=== PATIENT | female | born 1970 | race African-American/Black ===

== ENCOUNTER 2017-10-25 17:51 | Emergency (ER) | payer BC ==
[~2017-10-25] VITALS: Ht 175.3 cm; Wt 117.9 kg
[~2017-10-25 17:51] MED LIST: BENICAR HCT 401 EAC1 PO; LEVAQUIN 500 M500 M2 PO; LORTAB 5 MG/5001 TA1 PO; NORVASC5 MG PO; PRILOSEC40 MG PO
[2017-10-25 19:43] LABS: CALCIUM 9.5 mg/dL (8.5-10.1); CREATININE 1.1 mg/dL (0.6-1.0)
[2017-10-25 19:45] LABS: HEMATOCRIT 36.4 % (37.0-47.0); HEMOGLOBIN 12.6 gm/dL (12.0-15.0); MCH 26.1 pg (26.0-34.0); MCHC 34.5 g/dL (28.0-37.0); MCV 75.6 fL (80.0-100.0); PLATELET COUNT 183 thou/uL (150-400); RBC 4.82 mil/uL (4.20-5.00); RDW 14.1 % (10.5-14.5)
[2017-10-25 19:48] LABS: ALBUMIN 3.9 g/dL (3.4-5.0); TOTAL BILIRUBIN 0.5 mg/dL (<0.1-1.0); TOTAL PROTEIN 8.4 g/dL (6.4-8.2)
[2017-10-25 20:13] LABS: ABSOLUTE NEUTROPHILS 4.9 thou/uL (1.4-8.2)
[2017-10-25] MEDS ORDERED: PENICILLIN V P500 MG PO (20:19)
== END 2017-10-25 20:40 | disposition home or self-care (01) ==
LOC: ER 17:51
PROVIDERS: Physician Assistant
DX: J02.0 Streptococcal pharyngitis (principal); I10 Essential (primary) hypertension; K21.9 Gastro-esophageal reflux disease without esophagitis; Z90.710 Acquired absence of both cervix and uterus; Z90.49 Acquired absence of other specified parts of digestive tract; Z98.890 Other specified postprocedural states; Z88.1 Allergy status to other antibiotic agents; Z88.6 Allergy status to analgesic agent

== ENCOUNTER 2019-01-30 17:42 | Emergency (ER) | payer BC ==
[~2019-01-30] VITALS: Ht 175.3 cm; Wt 120.2 kg
[~2019-01-30 17:42] MED LIST changes: +PENICILLIN V P500 MG PO
[2019-01-30] MEDS ORDERED: COZAAR 25 MG TA25 M1 PO (18:02)
[2019-01-30] MEDS ORDERED: HYDROCHLOROTH12.5 M2 PO (18:02)
[2019-01-30] MEDS ORDERED: AMLODIPINE BESY10 MG PO (18:02)
[2019-01-30 19:34] LABS: URINE BILIRUBIN NEGATIVE (Negative); URINE BLOOD NEGATIVE (Negative); URINE CLARITY CLEAR; URINE COLOR YELLOW; URINE GLUCOSE-RANDOM* NEGATIVE (Negative); URINE KETONES NEGATIVE (Negative); URINE LEUKOCYTES-REFLEX NEGATIVE (Negative); URINE NITRITE-REFLEX NEGATIVE (Negative); URINE PROTEIN (DIPSTICK) NEGATIVE (Negative); URINE UROBILINOGEN 0.2 E.U./dl (0.2-1.0)
[2019-01-30] MEDS ORDERED: NORCO 5-325 TA1 EACH PO (19:47)
[2019-01-30] MEDS ORDERED: MOBIC15 MG PO (19:47)
[2019-01-30] MEDS ORDERED: VALIUM5 MG PO (19:47)
[2019-01-30 20:55] VITALS: BP 205/112
== END 2019-01-30 21:00 | disposition home or self-care (01) ==
LOC: ER 17:42
PROVIDERS: Emergency Medicine
DX: M54.5 Low back pain (principal); I10 Essential (primary) hypertension; K21.9 Gastro-esophageal reflux disease without esophagitis; M19.90 Unspecified osteoarthritis, unspecified site; Z88.6 Allergy status to analgesic agent; Z88.8 Allergy status to other drugs, medicaments and biological substances